=== PATIENT | male | born 1965 | race Caucasian/White ===

== ENCOUNTER 2017-09-13 12:06 | Observation (INO) ==
[2017-09-13] MEDS ORDERED: 0.9 % Sodium Chloride 1,000 ML IVC ONE ×2 (12:40→15:43)
[2017-09-13 13:17] LABS: Basophils % 0.1 %; Hematocrit 40.7 % (37.5-50.1); Hemoglobin 14.5 g/dL (12.9-16.9); Immature Granulocytes % 0.5 % (0-4); Lymphocytes # 0.8 K/mcL (0.6-4.6); Lymphocytes % 5.9 %; Mean Corpuscular HGB Conc 35.6 g/dL (31.6-35.5); Mean Corpuscular Hemoglobin 32.3 pg (28.0-33.3); Mean Corpuscular Volume 90.6 fL (83.0-100.0); Mean Platelet Volume 10.2 fL (9.4-12.4); Monocytes # 1.1 K/mcL (0.0-1.3); Monocytes % 8.5 %; Platelet Count 260 K/mcL (140-400); Red Blood Count 4.49 M/mcL (4.19-5.50); Red Cell Distribution Width 12.3 % (11.5-14.5)
--- NOTE | 2017-09-13 13:18 | Emergency Department Note ---
Disposition Clinical Impression: Pneumonia Qualifiers: Pneumonia type: due to unspecified organism Laterality: unspecified laterality Lung location: unspecified part of lung Qualified Code(s): J18.9 - Pneumonia, unspecified organism Disposition: Admitted As Inpatient Condition: Good Prescriptions: Erythromycin OPTH Oint 1 appl RIGHT EYE ONCE #1 tube Referrals: Ирина Winter CNP [Primary Care Provider] - 09/15/17 (conjunctivitis) Forms: ED Satisfaction Letter Time of Disposition: 17:07 General Adult HPI - General Chief complaint: ED Eye Problems Stated complaint: "fever,R eye swelling" Time Seen by Provider: 09/13/17 12:25 Source: patient Limitations: no limitations Nursing Notes Reviewed: Yes Vital Signs Reviewed: Yes - History of Present Illness HPI Narrative: 52 year old male prsentse to the ED with complaints of right eye pain and swelling over hte past few days. Harinet states that he was seen a few days ago for right eye swelling and think that perhaps it was due to his cozar that he is taking because lisinopril caused him to have swelling to his eye in the past. No difficulty in breathing or swallowing. PAtinet states that he has taken prednision therapy and it has improved but he is still having right eye pain and it appears injected. No headadhce or neck pain. He has a tactile fever a few daysa go and it was take at 100.4F. No cough, no urintaioni pain, no chest pain and abdominal pain Pain Scale: 2 - Related Data Home Medications Medication Instructions Recorded Confirmed Gemfibrozil [Lopid] 600 mg PO BID 09/11/17 09/13/17 Losartan [Cozaar] 25 mg PO DAILY 09/11/17 09/13/17 amLODIPine [Norvasc] 10 mg PO DAILY 09/11/17 09/13/17 Atenolol [Atenolol] 100 mg PO DAILY 09/13/17 09/13/17 Previous Rx's Medication Instructions Recorded PredniSONE [Deltasone] 40 mg PO DAILY #8 tablet 09/11/17 Erythromycin OPTH Oint 1 appl RIGHT EYE ONCE #1 tube 09/13/17 Allergies Allergy/AdvReac Type Severity Reaction Status Date / Time lisinopril Allergy Swelling Verified 09/13/17 12:24 of the Eye Constitutional: Denies: fever, chills, weakness, weight change Eyes: Reports: eye pain. Denies: eye discharge, vision change ENT ED: Denies: ear pain, throat pain, dental pain, hearing loss, epistaxis, congestion, dysphagia Cardiovascular: Denies: chest pain, palpitations, dyspnea on exertion, edema, syncope Respiratory: Denies: cough, dyspnea, wheezes, hemoptysis, stridor Gastrointestinal: Denies: abdominal pain, nausea, vomiting, diarrhea, constipation, hematemesis, melena, hematochezia Genitourinary: Denies: urgency, dysuria, frequency, hematuria Musculoskeletal: Denies: back pain, neck pain, arthralgia, myalgia Integumentary: Denies: rash, abrasion, lesions Neurological: Denies: headache, weakness, numbness, paresthesias, confusion, abnormal gait, vertigo Psychiatric: Denies: anxiety, depression, suicidal thoughts, homicidal thoughts , auditory hallucinations, visual hallucinations Endocrine: Denies: fatigue Hematological/Lymphatic: Denies: easy bleeding, easy bruising Allergic/Immunologic: Denies: facial swelling, urticaria Past Medical History - Past Medical History Medical history: Reports: GERD, hyperlipidemia, hypertension Surgical history: Reports: no surgical history Psychiatric history: Reports: no psych history - Social History Smoking Status: Never smoker Smokeless Tobacco Status: Yes Alcohol use: Reports: none Drug use: Reports: none Physical Exam - General Limitations: no limitations General appearance: alert, in no apparent distress - Head Head exam: atraumatic, normocephalic, normal inspection - Eye Eye exam: Present: normal appearance, PERRL, EOMI - Expanded Eye Exam Eyelids: bilateral: normal inspection Pupils: Bilateral: regular, round, reactive Sclera/Conjunctival: left: normal inspection, right: injection Cornea: bilateral: Normal Inspection - ENT ENT exam: normal exam, normal oropharynx, mucous membranes moist - Expanded ENT Exam External ear exam: Present: normal external inspection Mouth exam: Present: normal external inspection Teeth exam: Present: normal inspection Throat exam: Present: normal inspection - Neck Neck exam: Present: normal inspection, full ROM, trachea midline - Chest Chest inspection: Present: normal inspection, symmetric chest wall rise - Respiratory Respiratory exam: Present: normal lung sounds bilaterally - Cardiovascular Cardiovascular exam: Present: regular rate, normal rhythm, normal heart sounds - Abdominal Exam Abdominal exam: Present: soft, Non-Tender. Absent: tenderness, distention, guarding, rebound, rigidity - Extremities Exam Extremities exam: Present: normal inspection, full ROM. Absent: tenderness, pedal edema - Expanded Upper Extremity Exam Shoulder exam: Present: normal inspection, full ROM Arm exam: Present: normal inspection, full ROM Elbow exam: Present: normal inspection, full ROM Forearm/Wrist exam: Present: normal inspection, full ROM Hand exam: Present: normal inspection, full ROM Vascular exam: Normal: capillary refill, radial pulse - Expanded Lower Extremity Exam Hip/Pelvis exam: Present: normal inspection, full ROM Upper leg exam: Present: normal inspection, full ROM Knee exam: Present: normal inspection, full ROM Lower leg exam: Present: normal inspection, full ROM Ankle exam: Present: normal inspection, full ROM Foot/toe exam: Present: normal inspection, full ROM Neurovascular/Tendon exam: Absent: motor deficit, sensory deficit, tendon deficit - Back Exam Back exam: Present: normal inspection, full ROM. Absent: tenderness - Neurological Exam Neurological exam: Present: alert, oriented X3 - Expanded Neurological Exam Patient oriented to: Present: person, place, time Coma Scale Eye Opening: Spontaneous Coma Scale Motor Response: Obeys Commands Coma Scale Verbal Response: Oriented Coma Scale Total: 15 - Psychiatric Psychiatric exam: Present: normal affect, normal mood - Skin Skin exam: Present: warm, dry, intact, normal color Course Course Narrative: we will do maxillofacial CT and baseline labs for infectious workup. - Reevaluation(s) Reevaluation #1: updated pateint on results. He states that he feels febrile again. He does not meet SIRS criteria. He may have a viral URI. WE will recheck his temp and treat accordingly. Again no complanits of cough or UA symptms. We will send home with erythomyocin ointment for his eyes. No menigindeal signs or neck pain. His tmep is 103.5F. 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 I have concerns for autoimmune involvement. He also has beeen complaining about double vision. WE will followup with more thorough workup wit Ct head and chest and UA. IVF Time: 15:19 - Consultations Consultation #1: discussed case with Dr. Falcon and she has acceptd patinet to her service Time: 17:05 Vital Signs Temperature 98.7 F 09/13/17 12:20 Pulse Rate 80 09/13/17 12:20 Respiratory Rate 16 09/13/17 12:20 Blood Pressure 148/87 09/13/17 12:20 O2 Sat by Pulse Oximetry 97 09/13/17 12:20 Temperature 103.2 F H 09/13/17 16:02 Pulse Rate 89 09/13/17 16:02 Respiratory Rate 18 09/13/17 16:02 Blood Pressure 137/72 09/13/17 16:02 O2 Sat by Pulse Oximetry 97 09/13/17 16:02 Oxygen Delivery Oxygen Delivery Room Air Medical Decision Making - Lab Data Result diagrams: 09/13/17 13:05 09/13/17 13:05 Lab Results 09/13/17 09/13/17 09/13/17 Range/Units 13:05 13:05 13:05 WBC 12.9 H (4.3-11.1) K/mcL RBC 4.49 (4.19-5.50) M/mcL Hgb 14.5 (12.9-16.9) g/dL Hct 40.7 (37.5-50.1) % MCV 90.6 (83.0-100.0) fL MCH 32.3 (28.0-33.3) pg MCHC 35.6 H (31.6-35.5) g/dL RDW 12.3 (11.5-14.5) % Plt Count 260 (140-400) K/mcL MPV 10.2 (9.4-12.4) fL Immature Gran % 0.5 (0-4) % Seg Neutrophils % 85.0 % Lymphocytes % 5.9 % Monocytes % 8.5 % Eosinophils % 0.0 % Basophils % 0.1 % Neutrophils # 11.0 H (1.6-8.9) K/mcL Lymphocytes # 0.8 (0.6-4.6) K/mcL Monocytes # 1.1 (0.0-1.3) K/mcL Eosinophils # 0.0 (0.0-0.6) K/mcL Basophils # 0.0 (0.0-0.2) K/mcL Sodium 137 (136-145) mEq/L Potassium 4.4 (3.5-5.1) mEq/L Chloride 103 (98-107) mEq/L Carbon Dioxide 27 (23-29) mEq/L BUN 16 (6-20) mg/dL Creatinine 1.08 (0.70-1.30) mg/dL Est GFR ( Amer) > 60 (> 60) Est GFR (Non-Af Amer) > 60 (> 60) BUN/Creatinine Ratio 15 (6-26) Glucose 111 H (70-105) mg/dL Calculated Osmolality 286 (280-300) Lactic Acid 1.4 (0.5-2.2) mmol/L Calcium 9.8 (8.6-10.3) mg/dL Total Bilirubin 0.8 (0.3-1.0) mg/dL AST 11 L (13-39) Units/L ALT 9 (7-52) Units/L Alkaline Phosphatase 56 (34-104) Units/L Serum Total Protein 8.2 (6.4-8.9) g/dL Albumin 4.7 (3.5-5.7) g/dL Globulin 3.5 (2.4-3.5) g/dL Albumin/Globulin Ratio 1.3 (1.1-2.2)
[2017-09-13 13:36] LABS: Alanine Aminotransferase 9 Units/L (7-52); Albumin 4.7 g/dL (3.5-5.7); Albumin/Globulin Ratio 1.3 (1.1-2.2); Alkaline Phosphatase 56 Units/L (34-104); Aspartate Amino Transferase 11 Units/L (13-39); BUN/Creatinine Ratio 15 (6-26); Bilirubin,Total 0.8 mg/dL (0.3-1.0); Blood Urea Nitrogen 16 mg/dL (6-20); Calcium 9.8 mg/dL (8.6-10.3); Carbon Dioxide 27 mEq/L (23-29); Chloride 103 mEq/L (98-107); Globulin 3.5 g/dL (2.4-3.5); Glucose 111 mg/dL (70-105); Osmolality,Calculated 286 (280-300); Potassium 4.4 mEq/L (3.5-5.1); Sodium 137 mEq/L (136-145); Total Protein 8.2 g/dL (6.4-8.9); eGFR For African Americans > 60 (> 60); eGFR For Non-African Americans > 60 (> 60)
[2017-09-13] MEDS ORDERED: Isovue-370 500 ML INFUS..BTL IV ONE ×2 (15:44→16:32)
[2017-09-13] MEDS ORDERED: Piperacillin/Tazobactam 3.375 GM in 0.9 % Sodium Chloride Mini Bag 100 ML IVPB ONE (16:33)
[2017-09-13] MEDS ORDERED: Levofloxacin 750 MG/150 ML 750 MG/150 ML BAG IVPB ONE (17:03)
[2017-09-13 17:05] LABS: Bilirubin,Urine Negative (Negative); Blood,Urine Moderate (Negative); Clarity,Urine Clear (Clear); Color,Urine Yellow (Yellow); Glucose,Urine (UA) Normal (Normal); Ketones,Urine Negative (Negative); Leukocyte Esterase,Urine Negative (Negative); Nitrite,Urine Negative (Negative); Protein,Urine Negative (Neg-Trace); Specific Gravity,Urine > 1.030 (1.010-1.025); Urobilinogen,Urine Normal (Normal)
[2017-09-13 17:09] LABS: Bacteria,Urine None Seen per hpf (None-Few); Hyaline Casts,Urine None Seen per lpf (None-Few); Squamous Epithelial Cell,Urine Few per lpf (None-Few); WBC,Urine 0-3 per hpf (0-3)
--- NOTE | 2017-09-13 18:29 | Internal Med History&Physical ---
Date of Encounter: 09/13/17 Time of Encounter: 07:00 Internal Medicine - H&P: HPI Chief complaint: Fever History of present illness: Mr. Lindsay is a 52 year old medical history of hyperlipidemia and hypertension who presented to the ED with complaints of right eye pain and swelling over the past few days.the patient stated that several years ago he had fever up as a episode and was diagnosed with angioedema secondary to lisinopril which was discontinued and patient was started on Cozaar which he has been on for the last 1 year was no complication, Patient was started on prednisone and reports some improvement of his right eye swelling but was not completely resolved. while in the ER as the patient was started spiking fever of 100.4 No difficulty in breathing or swallowing. No cough. the patient reported a history of histroy fo Juvenile RA intermittent knee swelling, an autoimmune involvement was a concern for the ER staff and they obtained a CT scan of the head and chest. CT scan of the chest revealed possible pneumonia, and laboratory data showed elvated leukocytic count , the patient was admitted for further evaluation and management. Past Med Surg Social Fam HX - Past Medical History Medical history: GERD, hyperlipidemia, hypertension Psychiatric history: no psych history - Past Surgical History Surgical History: no surgical history - Social History Smoking Status: Never smoker Smokeless Tobacco Status: Yes Alcohol use: none Drug use: none Internal Medicine - H&P: Meds Gemfibrozil [Lopid] 600 mg PO BID 09/11/17 [History] amLODIPine [Norvasc] 10 mg PO DAILY 09/11/17 [History] Atenolol 100 mg PO DAILY 09/13/17 [History] Erythromycin OPTH Oint 1 appl RIGHT EYE ONCE #1 tube 09/13/17 [Rx] raNITIdine HCl [Zantac] 150 mg PO DAILY 09/14/17 [History] Levofloxacin [Levaquin] 750 mg PO DAILY #7 tablet 09/15/17 [Rx] PredniSONE [Deltasone] 40 mg PO DAILY #5 tablet 09/15/17 [Rx] 3 Allergy/AdvReac Type Severity Reaction Status Date / Time lisinopril Allergy Swelling Verified 09/13/17 12:24 of the Eye All Systems PM: A 10-system review of systems was performed and is negative for pertinent findings except as documented above in the HPI. - Constitutional Vitals: Temp Pulse Resp BP Pulse Ox 99.2 F 89 18 135/72 97 09/13/17 17:57 09/13/17 16:02 09/13/17 17:57 09/13/17 17:57 09/13/17 16:02 Internal Med - H&P Results - Labs CBC & Chem 7: 09/15/17 07:29 09/15/17 07:29 - Assessment and plan (1) Pneumonia Status: Acute Assessment and plan: ASSESSMENT: - SOB due to *Pneumonia - Blood Cx - Urine Legionella antigen - Antibiotics - CBCD, CMP in AM - Tylenol 650 mg PO q 4-6 hr PRN pain or fever - Home meds - check the list and restart accordingly - Heparin 5000 U SQ BID Qualifiers: Pneumonia type: due to unspecified organism Laterality: left Lung location: upper lobe of lung Qualified Code(s): J18.1 - Lobar pneumonia, unspecified organism (2) Angioedema Status: Inactive Assessment and plan: the patient have swelling of the right eye that resolved with prednisone and concern for angioedema due to ARBs, we will hold Cozaar for now continue prednisone. Qualifiers: Encounter type: initial encounter Qualified Code(s): T78.3XXA - Angioneurotic edema, initial encounter (3) Hypertension Status: Acute Assessment and plan: we will hold Cozaar given the concern for angioedema and continue other antihypertensive regimen. Qualifiers: Hypertension type: essential hypertension Qualified Code(s): I10 - Essential (primary) hypertension (4) Hyperlipemia Status: Acute Assessment and plan: We we'll continue her medication and obtain fasting lipid profile in a.m. Qualifiers: Hyperlipidemia type: unspecified Qualified Code(s): E78.5 - Hyperlipidemia , unspecified (5) DVT prophylaxis Status: Acute Assessment and plan: we'll start the patient on subcutaneous heparin - Time Spent With Patient Total time spent is greater than 50% in coordination of care (as documented) at patient's floor/unit and/or counseling patient:
[2017-09-13] MEDS ORDERED: Naloxone 0.4 MG/ML INJ IVP PRN (19:10)
[2017-09-13] MEDS ORDERED: Acetaminophen 325 MG TABLET PO PRN (19:54)
[2017-09-13] MEDS: Ibuprofen 600 MG TABLET PO PRN (20:22)
[2017-09-13] MEDS: 0.9 % Sodium Chloride 1,000 ML IVC SCH (20:25)
[2017-09-13 23:24] LABS: Influenza A PCR Negative (Negative); Influenza B PCR Negative (Negative); Resp. Syncytial Virus PCR Negative (Negative)
[2017-09-14] MEDS: Piperacillin/Tazobactam 3.375 GM in 0.9 % Sodium Chloride Mini Bag 100 ML IVPB SCH ×3 (00:21→16:47)
[2017-09-14 02:18] LABS: Alanine Aminotransferase 6 Units/L (7-52); Albumin/Globulin Ratio 1.4 (1.1-2.2); Alkaline Phosphatase 49 Units/L (34-104); Aspartate Amino Transferase 10 Units/L (13-39); BUN/Creatinine Ratio 13 (6-26); Bilirubin,Total 0.6 mg/dL (0.3-1.0); Blood Urea Nitrogen 14 mg/dL (6-20); Carbon Dioxide 22 mEq/L (23-29); Chloride 107 mEq/L (98-107); Chol/HDL Ratio 4.1 (0-4.9); Cholesterol 120 mg/dL (< 200); Globulin 2.8 g/dL (2.4-3.5); Glucose 130 mg/dL (70-105); HDL Cholesterol 29 mg/dL (40-59); LDL Cholesterol,Calculated 62 mg/dL (0-99); Magnesium 2.1 mg/dL (1.6-2.6); Osmolality,Calculated 290 (280-300); Phosphorous 4.3 mg/dL (2.7-4.5); Potassium 3.9 mEq/L (3.5-5.1); Sodium 139 mEq/L (136-145); Total Protein 6.8 g/dL (6.4-8.9); Triglycerides 147 mg/dL (< 150); eGFR For African Americans > 60 (> 60); eGFR For Non-African Americans > 60 (> 60)
[2017-09-14 02:27] LABS: Basophils % 0.4 %; Hematocrit 37.5 % (37.5-50.1); Hemoglobin 13.1 g/dL (12.9-16.9); Immature Granulocytes % 0.5 % (0-4); Lymphocytes # 1.1 K/mcL (0.6-4.6); Mean Corpuscular HGB Conc 34.9 g/dL (31.6-35.5); Mean Corpuscular Volume 91.7 fL (83.0-100.0); Mean Platelet Volume 10.4 fL (9.4-12.4); Monocytes % 10.9 %; Neutrophils # 6.9 K/mcL (1.6-8.9); Platelet Count 233 K/mcL (140-400); Red Blood Count 4.09 M/mcL (4.19-5.50); Segmented Neutrophils % 76.2 %
[2017-09-14 02:32] LABS: INR 1.3; Prothrombin Time 14.2 Seconds (9.4-12.1)
[2017-09-14 02:35] LABS: Activated Partial Thrombo Time 30.5 Seconds (26.0-36.0)
[2017-09-14] MEDS: 0.9 % Sodium Chloride 1,000 ML IVC SCH (03:46)
[2017-09-14] MEDS: Ibuprofen 600 MG TABLET PO PRN (05:12)
[2017-09-14] MEDS: *HR* Heparin 5,000 UNIT/ML VIAL SQ SCH ×2 (05:14→16:48)
[2017-09-14] MEDS: predniSONE 20 MG TABLET PO SCH (08:30)
[2017-09-14] MEDS ORDERED: amLODIPine 5 MG TABLET PO SCH (09:00)
--- NOTE | 2017-09-14 16:09 | Internal Med Progress Note ---
Date of Encounter: 09/14/17 Time of Encounter: 16:07 - Assessment and plan (1) Sepsis Current Visit: Yes Status: Acute Assessment and plan: Meets 2 SIRS criteria for leukocytosis and fever. Suspect this is pneumonia related based on chest CT of pneumonia findings of JARRELL. However, patient is having some vision complaints, and should rule out intracranial processes like encephalitis Kernig's Sign and Brudzinski's Sign negative suggestive against meningitis but should still obtain LP. Contacted IR without any answer, will try again. Continue Zosyn and Levaquin Monitor vitals closely Qualifiers: Sepsis type: sepsis due to unspecified organism Qualified Code(s): A41.9 - Sepsis, unspecified organism (2) Angioedema Current Visit: No Status: Acute Assessment and plan: the patient have swelling of the right eye that resolved with prednisone and concern for angioedema due to ARBs, Cozaar is held. Patient suspects change in vision related to eye swelling. Continue Prednisone CT of face and head were negative. MRI ordered Qualifiers: Encounter type: initial encounter Qualified Code(s): T78.3XXA - Angioneurotic edema, initial encounter (3) Pneumonia Current Visit: Yes Status: Acute Assessment and plan: Plan as above; continue antibiotics Qualifiers: Pneumonia type: due to unspecified organism Laterality: left Lung location: upper lobe of lung Qualified Code(s): J18.1 - Lobar pneumonia, unspecified organism (4) Hypertension Current Visit: Yes Status: Acute Assessment and plan: we will hold Cozaar given the concern for angioedema and continue other antihypertensive regimen. Qualifiers: Hypertension type: essential hypertension Qualified Code(s): I10 - Essential (primary) hypertension (5) Hyperlipemia Current Visit: Yes Status: Acute Assessment and plan: Continue home medications Qualifiers: Hyperlipidemia type: unspecified Qualified Code(s): E78.5 - Hyperlipidemia , unspecified (6) DVT prophylaxis Current Visit: Yes Status: Acute Assessment and plan: Continue SQ heparin - Time Spent With Patient Total time spent is greater than 50% in coordination of care (as documented) at patient's floor/unit and/or counseling patient: - Subjective Interval history: Patient states he is still having change in vision, but fevers have improved. He states having some neck tenderness but feels like it is a musle spasm for bad positioning. Denies SOB, chest pain, n/v, diarrhea, constipation. - Constitutional Vitals: Temp Pulse Resp BP Pulse Ox 98.0 F 84 15 110/72 96 09/14/17 14:37 09/14/17 14:37 09/14/17 14:37 09/14/17 14:37 09/14/17 14:37 - Head Head exam: Present: atraumatic, normocephalic - Eye Eye exam: Present: PERRL, conjuntiva pink, sclera anicteric. Absent: periorbital tenderness (a) Pupils: Present: PERRL - ENT Additional comments: Kernig's Sign and Brudzinski's Sign are both negative. - Neck Neck exam general surgery: Present: supple, trachea midline. Absent: lymphadenopathy - Respiratory Respiratory exam: Present: CTAB. Absent: accessory muscle use, rales, rhonchi, wheezes - Cardiovascular Cardiovascular exam: Present: RRR, +S1, +S2. Absent: diastolic murmur, gallop, rubs, systolic murmur - GI/Abdominal GI/Abdominal exam: Present: normal bowel sounds, soft, no peritoneal signs. Absent: distended, tenderness - Extremities Exam Extremities exam: Present: warm, radial pulses palpable and symmetrical. Absent : calf tenderness, cyanotic, pedal edema - Neurological Exam Neurological exam: Present: CN II-XII intact, oriented X3, no focal deficits. Absent: pronater drift, facial droop, speech deficit - Skin Skin exam: Present: dry, intact Internal Medicine: Result - Labs CBC & Chem 7: 09/14/17 01:30 09/14/17 01:30 Labs: Short CBC 09/14/17 Range/Units 01:30 WBC 9.1 (4.3-11.1) K/mcL Hgb 13.1 (12.9-16.9) g/dL Hct 37.5 (37.5-50.1) % Plt Count 233 (140-400) K/mcL Neutrophils # 6.9 (1.6-8.9) K/mcL BMP 09/14/17 01:30 Sodium 139 Potassium 3.9 Chloride 107 Carbon Dioxide 22 L BUN 14 Creatinine 1.04 Glucose 130 H Calcium 9.0 Cardiac Enzymes 09/13/17 09/14/17 09/14/17 Range/Units 20:04 01:30 08:00 Troponin I < 0.03 < 0.03 < 0.03 (< 0.04) ng/mL Liver Function 09/14/17 Range/Units 01:30 Total Bilirubin 0.6 (0.3-1.0) mg/dL AST 10 L (13-39) Units/L ALT 6 L (7-52) Units/L Alkaline Phosphatase 49 (34-104) Units/L Albumin 4.0 (3.5-5.7) g/dL - ABG Interpretation ABG results: PT/INR, D-dimer PT 14.2 Seconds (9.4-12.1) H 09/14/17 01:30 Consult Discharge Plan - Plan Referrals: Ирина Winter, TERRELL [Primary Care Provider] -
[2017-09-14] MEDS ORDERED: Levofloxacin 750 MG/150 ML 750 MG/150 ML BAG IVPB SCH ×2 (20:00→23:00)
[2017-09-15] MEDS: Famotidine 20 MG TABLET PO SCH ×2 (01:09→09:00)
[2017-09-15] MEDS: Piperacillin/Tazobactam 3.375 GM in 0.9 % Sodium Chloride Mini Bag 100 ML IVPB SCH ×2 (01:10→09:01)
[2017-09-15] MEDS: *HR* Heparin 5,000 UNIT/ML VIAL SQ SCH (05:40)
[2017-09-15 08:15] LABS: Basophils % 0.3 %; Eosinophils % 0.5 %; Hemoglobin 13.5 g/dL (12.9-16.9); Immature Granulocytes % 0.5 % (0-4); Lymphocytes # 1.4 K/mcL (0.6-4.6); Lymphocytes % 15.9 %; Mean Corpuscular HGB Conc 36.5 g/dL (31.6-35.5); Mean Corpuscular Volume 90.5 fL (83.0-100.0); Mean Platelet Volume 10.3 fL (9.4-12.4); Monocytes % 11.1 %; Neutrophils # 6.3 K/mcL (1.6-8.9); Platelet Count 245 K/mcL (140-400); Red Blood Count 4.09 M/mcL (4.19-5.50); Segmented Neutrophils % 71.7 %
[2017-09-15] MEDS ORDERED: amLODIPine 5 MG TABLET PO SCH (09:00)
[2017-09-15] MEDS: predniSONE 20 MG TABLET PO SCH (09:01)
[2017-09-15 09:53] LABS: BUN/Creatinine Ratio 12 (6-26); Blood Urea Nitrogen 12 mg/dL (6-20); Calcium 9.2 mg/dL (8.6-10.3); Carbon Dioxide 22 mEq/L (23-29); Chloride 106 mEq/L (98-107); Glucose 116 mg/dL (70-105); Osmolality,Calculated 285 (280-300); Potassium 3.7 mEq/L (3.5-5.1); Sodium 137 mEq/L (136-145); eGFR For African Americans > 60 (> 60); eGFR For Non-African Americans > 60 (> 60)
[2017-09-15 11:06] LABS: Glucose,CSF 75 mg/dL (40-70); Total Protein,CSF 45 mg/dL (15-45)
[2017-09-15 11:11] LABS: Red Blood Cell,CSF < 0.002 M/mcL
[2017-09-15 11:13] LABS: Appearance,CSF Clear (Clear)
[2017-09-15 11:20] VITALS: BP 124/73
--- NOTE | 2017-09-15 12:12 | Discharge Summary ---
- NOTES TO OUTPATIENT PROVIDER Notes to Outpatient Provider: Follow-up with primary care in 2-3 days. - Angioedema resolved, home with 5 days Prednisone, ensure eye swelling remains improved. - Febrile from pneumonia and treated, ensure resolution, consider follow-up imaging. Orders not resulted at time of discharge: Pending orders 09/13/17 19:33 Urinalysis reflex Microscopic [URIN] Routine 09/13/17 19:39 Culture,Sputum with Gram Stain [RM] Routine 09/15/17 10:08 Culture,CSF [RM] Stat HSV 1 Glycoprotein G IgG CSF Stat HSV 2 Glycoprotein G IgG CSF Stat 09/16/17 04:00 BMP [Basic Metabolic Panel] AM 0400 Complete Blood Count [HEME] AM 0400 Date of Encounter: 09/15/17 Time of Encounter: 12:09 - Discharge Diagnosis (1) Angioedema Priority: Primary Status: Acute Assessment and Plan: the patient have swelling of the right eye that resolved with prednisone and concern for angioedema due to ARBs, Cozaar is held. Patient suspects change in vision related to eye swelling. Continue Prednisone CT of face and head were negative. MRI ordered Qualifiers: Encounter type: initial encounter Qualified Code(s): T78.3XXA - Angioneurotic edema, initial encounter (2) Sepsis Priority: Secondary Status: Suspected Assessment and Plan: Was supected initially But patient clinically improved and was likely simply pneumonia. Afebrile >24 hours prior to discharge. Has been stable and asymptomatic. Qualifiers: Sepsis type: sepsis due to unspecified organism Qualified Code(s): A41.9 - Sepsis, unspecified organism (3) Pneumonia Priority: Secondary Status: Acute Qualifiers: Pneumonia type: due to unspecified organism Laterality: left Lung location: upper lobe of lung Qualified Code(s): J18.1 - Lobar pneumonia, unspecified organism (4) Hypertension Priority: Secondary Status: Acute Qualifiers: Hypertension type: essential hypertension Qualified Code(s): I10 - Essential (primary) hypertension (5) Hyperlipemia Priority: Secondary Status: Acute Qualifiers: Hyperlipidemia type: unspecified Qualified Code(s): E78.5 - Hyperlipidemia , unspecified (6) DVT prophylaxis Priority: Secondary Status: Acute Hospital course: Mr. Lindsay is a 52 year old male medical history of hypertension who presented to the ED with complaints of right eye pain and swelling over the past few days.the patient stated that several years ago he had fever up as a episode and was diagnosed with angioedema secondary to lisinopril which was discontinued and patient was started on Cozaar which he has been on for the last 1 year was no complication, Patient was started on prednisone and reports some improvement of his right eye swelling but was not completely resolved. while in the ER as the patient was started spiking fever of 100.4. He has history of history of Juvenile RA intermittent knee swelling, an autoimmune involvement was a concern for the ER staff and they obtained a CT scan of the head and chest. CT scan of the chest revealed possible pneumonia, and laboratory data showed elevated leukocytic count , the patient was admitted for further evaluation and management. For angioedema he was continued on Prednisone and Cozaar was held. He complained of changing of vision (that did resolve) and some neck pain like a pulling sensation. An MRI was done as well as a LP and MRI was normal and CSF sampling were negative findings and cultures are pending. Likely not infectious causes of brain findings and neck findings. Physical exam was benign as well. After treating pneumonia, patient was afebrile for greater than 24 hours and he remained asymptomatic. Swelling of eyes completely resolved. Patient was discharged home in stable condition to finish steroid burst, Cozaar discontinued on discharge, and Levaquin for 7 additional days. - Time Spent with Patient Total time spent providing and/or coordinating discharge services: - Discharge Medications Prescriptions: Levofloxacin [Levaquin] 750 mg PO DAILY #7 tablet PredniSONE [Deltasone] 40 mg PO DAILY #5 tablet Home Medications: Gemfibrozil [Lopid] 600 mg PO BID 09/11/17 [History] amLODIPine [Norvasc] 10 mg PO DAILY 09/11/17 [History] Atenolol 100 mg PO DAILY 09/13/17 [History] Erythromycin OPTH Oint 1 appl RIGHT EYE ONCE #1 tube 09/13/17 [Rx] raNITIdine HCl [Zantac] 150 mg PO DAILY 09/14/17 [History] Levofloxacin [Levaquin] 750 mg PO DAILY #7 tablet 09/15/17 [Rx] PredniSONE [Deltasone] 40 mg PO DAILY #5 tablet 09/15/17 [Rx] Allergies/Adverse Reactions: 3 Allergy/AdvReac Type Severity Reaction Status Date / Time lisinopril Allergy Swelling Verified 09/13/17 12:24 of the Eye Date of admission: 09/13/17 19:10 Primary care physician: Ирина Winter Consults: 09/14/17 16:08 Consult to Interventional Radiology [CONS] Routine Consulting Provider: Radiology Interventional Cols Reason for Consult: LP Call Completed: Yes Discharging clinician: Doug Schilling - Constitutional Vitals: Temp Pulse Resp BP Pulse Ox 99.3 F 80 16 124/73 96 09/15/17 11:19 09/15/17 11:19 09/15/17 11:19 09/15/17 11:19 09/15/17 11:19 - Head Head exam: Present: atraumatic, normocephalic - Eye Eye exam: Present: PERRL, conjuntiva pink, sclera anicteric Pupils: Present: PERRL - Neck Neck exam general surgery: Present: supple, trachea midline. Absent: lymphadenopathy - Respiratory Respiratory exam: Present: CTAB. Absent: accessory muscle use, rales, rhonchi, wheezes - Cardiovascular Cardiovascular exam: Present: RRR, +S1, +S2. Absent: diastolic murmur, gallop, rubs, systolic murmur - GI/Abdominal GI/Abdominal exam: Present: normal bowel sounds, soft, no peritoneal signs. Absent: distended, tenderness - Extremities Exam Extremities exam: Present: warm, radial pulses palpable and symmetrical. Absent : calf tenderness, cyanotic, pedal edema - Neurological Exam Neurological exam: Present: CN II-XII intact, oriented X3, no focal deficits. Absent: pronater drift, facial droop, speech deficit - Skin Skin exam: Present: dry, intact - Patient Status Disposition: Home, Self-Care Condition: Good Functional capacity at discharge: independent ambulation Overall status at discharge: patient is back to baseline - Discharge Instructions Follow Up With: Ирина Witner CNP [Primary Care Provider] - 09/23/17 10:15 am - Diet and Activity Activity: increase activity as tolerated Diet: advance to your usual diet - VTE Documentation of Mechanical Device: Graduated compression elastic hosiery
[2017-09-18 10:32] LABS: HSV 2 Glycoprotein G IgG CSF 0.03 IV (<=0.89)
[2017-09-18 10:33] LABS: HSV 1 Glycoprotein G IgG CSF 0.11 IV (<=0.89)
== END 2017-09-15 14:28 | disposition home or self-care (01) ==
LOC: EMEROO 12:06 → 3ANU 12:06
PROVIDERS: ADMIT Student in an Organized Health Care Education/Training Program; ATTEND Internal Medicine Nephrology